=== PATIENT | female | born 1950 | race Caucasian/White ===

== ENCOUNTER 2018-01-07 12:00 | Inpatient (IN) | payer MEDICARE ==
--- NOTE | 2018-02-10 22:21 | HP ---
HISTORY AND PHYSICAL: DATE OF ADMISSION/SURGERY: 02/23/18 DATE OF OFFICE VISIT: 02/08/18 SURGEON: Carisa Ash MD * (DICTATED BY MARICRUZ ZURITA) PROCEDURE: Right total knee arthroplasty. CHIEF COMPLAINT: Right knee pain. HISTORY OF PRESENT ILLNESS: Ms. Darnell is a 67-year-old female with continued complaints of right knee pain. She has failed conservative treatment and elected to proceed with a right total knee arthroplasty. PAST MEDICAL HISTORY: Vitamin D deficiency, early Alzheimer's, anemia, and Raynaud's disease. PAST SURGICAL HISTORY: Orbital reconstruction, lumpectomy, throat biopsy, hysterectomy, trigger finger release, cataract excision. CURRENT MEDICATIONS: 1. Meloxicam 7.5 mg twice a day. 2. Famciclovir 250 mg daily. 3. Donepezil 5 mg q.h.s. ALLERGIES: To KEFLEX, SULFA, ERYTHROMYCIN, TENSILON, LATEX, and MYRBETRIQ. FAMILY HISTORY: Coronary artery disease, cancer, and diabetes. SOCIAL HISTORY: She is a 67-year-old female. She lives alone. She does not smoke or use drugs or alcohol. REVIEW OF SYSTEMS: A complete 14-point review of systems was reviewed with the patient. It was positive for occasional vertigo. She denies history of DVT, PE , hepatitis, HIV, or anesthesia problems. PHYSICAL EXAMINATION GENERAL: She is well developed, well nourished, in no acute distress. VITAL SIGNS: She stands 58 inches tall, weighs 156 pounds. Her blood pressure is 118/78 and her heart rate is 80. HEENT: Normocephalic, atraumatic. NECK: Supple. No palpable lymph nodes. PULMONARY: The lungs are clear to auscultation bilaterally. CARDIO: Regular rate and rhythm. Strong S1, S2. ABDOMEN: Soft, nontender, nondistended. NEUROLOGICAL: She is alert and oriented x3. MUSCULOSKELETAL: Right lower extremity: The skin is intact. She has no open wounds or abrasions. She walks with an antalgic-type gait favoring her right knee. She has some tenderness over the medial and lateral joint line. She has 2 + dorsalis pedis pulse, intact sensation and her lower extremity muscle group strengths are intact at 5/5. ASSESSMENT AND PLAN: Ms. Darnell is a 67-year-old female with end-stage osteoarthritis of the right knee. She has failed conservative treatment and elected to proceed with a right total knee arthroplasty. The surgery is scheduled for 02/23/[address] Ash discussed the risks and benefits of the surgery at today's visit and all of her questions were answered. She will follow up with Dr. Ash 2 weeks after the surgery. MARICRUZ ZURITA [id number]/[facility] #: [id number] MTDGeronimo
[2018-02-22] MEDS ORDERED: Buffered Lidocaine 0.9% SYRIN* 5 ML/SYR SYRINGE INTRADERM ONE (12:34)
[2018-02-23] MEDS ORDERED: Tranexamic Acid 1,000 MG in NS 0.9% 50 ML* (outpatient use) IV SCH ×2
[2018-02-23] MEDS ORDERED: Lactated Ringers 1000 ML Bag* 1,000 ML IV SCH ×2 (06:00→13:00)
[2018-02-23] MEDS ORDERED: Famotidine IV* 10 MG/ML 2 ML (20 mg) IV ONE (06:00)
[2018-02-23] MEDS ORDERED: Gabapentin CAP(*) 300 MG PO ONE (06:00)
[2018-02-23] MEDS ORDERED: ceFAZolin 2 GM PREMIX in ORs 2 GM/50 ML BAG IVPB ONE (07:22)
[2018-02-23] MEDS ORDERED: Famotidine IV* 10 MG/ML 2 ML (20 mg) ONE (07:22)
[2018-02-23] MEDS ORDERED: Gabapentin CAP(*) 300 MG ONE (07:22)
[2018-02-23] MEDS ORDERED: fentaNYL* 50 MCG/ML 2 ML VIAL (100 MCG VIAL) ONE ×2 (08:44→10:38)
[2018-02-23] MEDS ORDERED: Midazolam* 1 MG/ML 5 ML VIAL (5 MG) ONE (08:44)
[2018-02-23] MEDS ORDERED: ROPIVACAINE 5 MG/ML 30 ML BTL (0.5%) ONE (08:45)
[2018-02-23] MEDS ORDERED: KETAMINE HCL* 50 MG/ML 10 ML VIAL ONE (08:45)
[2018-02-23] MEDS ORDERED: Lidocaine 1%* 5 ML VIAL ONE (08:45)
[2018-02-23] MEDS ORDERED: Bupivacaine 0.5% PF 10 ML VIAL INJ ONE ×3 (09:52→12:11)
[2018-02-23] MEDS ORDERED: Dexmedetomidine* 200 MCG/2 ML 2 ML VIAL ONE (10:14)
[2018-02-23] MEDS ORDERED: Ketorolac INJ* 30 MG/ML 1 ML VIAL ONE (10:21)
[2018-02-23] MEDS ORDERED: Lidocaine 2% PF * 5 ML VIAL ONE (10:21)
[2018-02-23] MEDS ORDERED: Ondansetron INJ* 2 MG/ML VIAL ONE (10:21)
[2018-02-23] MEDS ORDERED: DiMENhydriNATE IV* 50 MG/ML VIAL ONE (10:21)
[2018-02-23] MEDS ORDERED: Dexamethasone IV* 4 MG/ML 1 ML (4 MG) ONE (10:21)
[2018-02-23] MEDS ORDERED: Propofol* 10 MG/ML 20 ML BTL ONE (10:21)
[2018-02-23] MEDS ORDERED: Acetaminophen IV 1GM/100ML * 1,000 MG/100 ML VIAL IVPB ONE (11:14)
[2018-02-23] MEDS ORDERED: DiMENhydriNATE IV* 50 MG/ML VIAL IV PUSH PRN (11:14)
[2018-02-23] MEDS ORDERED: Naloxone* 0.4 MG/ML 1 ML VIAL IV PRN (11:14)
[2018-02-23] MEDS ORDERED: Gabapentin CAP(*) 100 MG PO ONE (11:16)
[2018-02-23] MEDS ORDERED: HYDROmorphone INJ1* 1 MG/ML SYRINGE ONE ×3 (11:31→14:15)
[2018-02-23] MEDS ORDERED: Morphine VIAL* 4 MG/ML VIAL (1 ml vial) IV PRN (12:28)
[2018-02-23] MEDS ORDERED: oxyCODONE/Acetamin 5/325 MG* TAB PO PRN (12:28)
[2018-02-23] MEDS ORDERED: Magnesium Hydroxide LIQ* 30 ML UDC PO PRN (12:28)
[2018-02-23] MEDS ORDERED: Cyclobenzaprine TAB* 10 MG PO PRN (12:28)
[2018-02-23] MEDS ORDERED: Bisacodyl SUPP* 10 MG SUPP PR PRN (12:28)
[2018-02-23] MEDS ORDERED: Acetaminophen TAB* 325 MG PO PRN (12:28)
[2018-02-23] MEDS ORDERED: diPHENhydraMINE IV* 50 MG/ML 1 ml VIAL (BENADRYL) IV PRN (12:28)
[2018-02-23] MEDS ORDERED: Ondansetron INJ* 2 MG/ML VIAL IV PRN (12:28)
[2018-02-23] MEDS ORDERED: Gabapentin CAP(*) 100 MG ONE (13:22)
[2018-02-23] MEDS ORDERED: Acetaminophen IV 1GM/100ML * 100 ML ONE (13:22)
[2018-02-23] MEDS: HYDROmorphone INJ1* 1 MG/ML SYRINGE IV PRN ×3 (13:25→14:18)
[2018-02-23] MEDS ORDERED: oxyCODONE/Acetamin 5/325 MG* TAB ONE (14:16)
--- NOTE | 2018-02-23 15:17 | PN ---
Progress Note - Progress Note Date of Service: 02/23/18 Note: resting comfortably in bed with no complaints. Denies SOB/Chest pain. dressing c /d/i. 2+ DP pulse, intact sensation and able to dorsi flex/plantar flex
[2018-02-23] MEDS ORDERED: Clindamycin 600 MG IVPREMIX(* 600 MG/50 ML SDV IV SCH (15:30)
[2018-02-23] MEDS ORDERED: Warfarin TAB(*) 6 MG PO ONE (17:00)
[2018-02-23] MEDS: Clindamycin 600 MG IVPREMIX(* 600 MG/50 ML SDV IV SCH (18:09)
[2018-02-23] MEDS: oxyCODONE TAB* 5 MG TAB PO PRN (18:10)
[2018-02-23] MEDS: Nystatin TOP POWDER* 15 GM BTL TOPICAL SCH (19:58)
[2018-02-23] MEDS: Magnesium Hydroxide LIQ* 30 ML UDC PO SCH (19:58)
[2018-02-23] MEDS: Docusate CAP* 100 MG PO SCH (19:58)
[2018-02-23] MEDS: oxyCODONE/Acetamin 5/325 MG* TAB PO PRN (22:46)
[2018-02-24] MEDS: Clindamycin 600 MG IVPREMIX(* 600 MG/50 ML SDV IV SCH ×2 (02:05→10:01)
[2018-02-24] MEDS: oxyCODONE TAB* 5 MG TAB PO PRN ×4 (02:05→19:18)
[2018-02-24 06:21] LABS: Hematocrit 33 % (35-47); Hemoglobin 11.1 g/dl (12.0-16.0); Mean Platelet Volume 8.5 fL (7.4-10.4); Platelet Count 253 10^3/ul (150-450)
[2018-02-24 06:26] LABS: INR 1.17 (0.77-1.02)
[2018-02-24 06:43] LABS: EGFR Non-African American 106.1 (>60)
[2018-02-24] MEDS: Magnesium Hydroxide LIQ* 30 ML UDC PO SCH ×2 (08:33→22:16)
[2018-02-24] MEDS: Vitamin THERAPEUTIC TAB PO SCH (08:33)
[2018-02-24] MEDS: Docusate CAP* 100 MG PO SCH ×2 (08:33→22:16)
[2018-02-24] MEDS: Nystatin TOP POWDER* 15 GM BTL TOPICAL SCH ×2 (08:34→22:16)
[2018-02-24] MEDS: Enoxaparin(*) 40 MG/0.4 ML SYR SUBCUT SCH (08:35)
[2018-02-24] MEDS: oxyCODONE/Acetamin 5/325 MG* TAB PO PRN ×3 (08:41→22:16)
[2018-02-24] MEDS ORDERED: Pneumococcal *Vac Polyvalent 0.5 ML VIAL IM ONE (09:00)
--- NOTE | 2018-02-24 09:46 | OP ---
OPERATIVE NOTE: DATE OF OPERATION: 02/23/18 DATE OF : 52 ATTENDING SURGEON: Carisa Ash MD BRAN MIXER: MARICRUZ Gregg Mr. Carroll did help throughout the procedure with preparation of the leg, wound retraction, manipulat ion of the knee, and wound closure. ANESTHESIOLOGIST: Dr. Peña. ANESTHESIA: General. PRE-OP DIAGNOSIS: Severe end-stage degenerative osteoarthritis of the right knee joint. POST-OP DIAGNOSIS: Severe end-stage degenerative osteoarthritis of the right knee joint. OPERATIVE PROCEDURE: Right total knee arthroplasty. TOURNIQUET TIME: 46 minutes. COMPLICATIONS: None. ESTIMATED BLOOD LOSS: 250 cc. SPECIMEN: Bone and cartilage from the right knee joint sent to Pathology. HARDWARE USED: This is cemented [employer] total knee hardware. Two packages of Simplex bone cement. For the femur, a size 4 narrow right posterior stabilized Legion narrow Oxinium femoral comp onent. For the tibia, a size 3 right Vivian II tibial base plate. For the insert, an 11-mm posteri or stabilized articular insert, size 3-4. For the patella, a 26-mm 3-peg all poly patella with 7.5 t hickness. BRIEF HISTORY/INDICATION: Ms. Darnell is a 67-year-old female with years of increasingly severe righ t knee pain. Radiographs showed paic-nz-kuot arthritis. She failed conservative treatment with antii nflammatories, pain medication, intraarticular injections, and physical therapy. Due to continued pa in and decreased quality of life, she elected to undergo right total knee arthroplasty. Informed cons ent was obtained from the patient. She understood the risks of surgery included but were not limited to bleeding, infection, damage to nearby structures, continued pain, need for further surgery, intra operative fracture, nerve palsy, hardware failure or loosening, knee stiffness, loss of motion, strok e, heart attack, blood clot, and . She wished to proceed. INTRAOPERATIVE FINDINGS: Intraoperatively, the patient was noted to have severe end-stage arthritis with complete loss of cartilage in all 3 compartments. DESCRIPTION OF PROCEDURE: Ms. Darnell was identified in the preanesthesia unit. Her right lower extr emity was marked as the correct operative site. Informed consent was signed and placed in the chart. The patient was taken to the operating room and placed under general anesthesia. A Kilgore catheter was placed. Tourniquet was placed on the right thigh. Right lower extremity was prepped and draped in the usual sterile fashion. Preop time-out was made to correctly identify the patient, side, and s ite. Appropriate perioperative antibiotics were given within 1 hour of incision. Tourniquet was inflated and total tourniquet time for this procedure was 46 minutes. A midline incis ion was made with a 10-blade and carried down to the extensor mechanism. A new 10-blade was used to make a standard medial parapatellar arthrotomy. Patella was subluxed laterally. Electrocautery was used to subperiosteally elevate the soft tissue off the superomedial tibia to the mid sagittal plane. The patient's knee was flexed up. The anterior horn of the lateral meniscus and ACL were sharply r eleased. A drill was used to enter the distal femur. Intramedullary distal femoral cutting guide wa s pinned on the distal femur. Oscillating saw was used to make the distal femoral cut. Next, the ex ternal rotation guide was pinned on the distal femur. Distal femur was sized to a size 4. Size 4 mu lti-cutting jig was pinned on the distal femur. Oscillating saw was used to make the appropriate 4 c hamfer cuts. PCL was completely released. The tibia was subluxed anteriorly. Extramedullary tibial cutting guide was pinned on the proximal tibia. Oscillating saw was used to make the proximal tibial cut perpendi cular to the mechanical axis of the tibia. The bone was carefully removed. The knee was brought out into full extension. Spacer block had excellent fit with the knee in full extension. There was good medial and lateral ligamentous balancing. Flexion and extension gaps were well balanced. Any remain ing osteophytes were removed from along the medial tibial plateau. The knee was flexed up. Lamina s preader was placed both medially and laterally. Any remaining meniscus was carefully removed using e lectrocautery. Tibial tray and drop renetta were placed and once again confirmed satisfactory tibial cut. Next, the size 4 right narrow femoral trial was impacted onto the distal femur and had excellent fit. The box for the posterior stabilized implant was prepared using a reamer and box cut osteotome. Si ze 3 tibial tray trial with an 11-mm insert trial was placed and the knee was taken through a range o f motion. The knee had full extension to 130 degrees of flexion with satisfactory patellofemoral tra cking. The patella was everted. A 7 mm of patellar bone and cartilage was carefully removed using an oscillating saw. Patella was sized to a size 26. Three peg holes were drilled through the size 26 guide. A 26 patella with 7.5 thickness was placed and the knee was taken through range of motion. T here was satisfactory patellofemoral tracking. All trials were carefully removed. The tibia was subluxed anteriorly and sized to a size 3. Proxima l tibia was prepared using a size 3 keel punch. All bony cut surfaces were copiously irrigated with sterile saline and dried. Final implants were cemented into place starting with the tibia, followed by the femur and last the patella. An 11-mm insert trial was placed while the knee was brought out i nto full extension. Tourniquet was turned down at 46 minutes. Electrocautery was used to obtain met iculous hemostasis. The knee was copiously irrigated with sterile saline. Once the cement had fully cured, the insert trial was carefully removed. Any excess cement was removed from around the capsule and hardware. The final insert chosen was an 11-mm posterior stabilized articular insert size 3-4. This was locked into position on the tibial tray. The extensor mechanism was closed using interrupted #1 Vicryl. The rest of the incision was closed i n a layered fashion using 0 and 2-0 Vicryl. Skin was closed using running 3-0 nylon. Sterile Xerofo rm, 4x4's, and Webril were used to cover the incision. The Charly wrap and cold pack were placed over t his. The patient's anesthesia was reversed without difficulty. She was taken to the PACU in stable condition. [id number]/[facility] #: [id number]
--- NOTE | 2018-02-24 12:51 | PN ---
Progress Note - Progress Note Date of Service: 02/24/18 SOAP: Subjective: []Patient was seen and examined at bedside today. She is feeling well without severe knee pain. Denies CP, SOB, dizziness, nausea, confusion or leg numbness. No history of blood clot Objective: []General: Well appearing, NAD RLE: Right knee dressing CDI, no surrounding erythema, DF/PF intact, sensation intact distally, DP2+ Calves are supple and nontender without erythema, edema or palpable cords Assessment: [] POD 1 sp right total knee replacement 02/23/18 Dr Ash Plan: []WBAT PT/OT Lovenox bridge to coumadin, coumadin 8 mg today Hyponatremia. PO fluid restrict to 1200 ml today, stop lactated ringer maintenance fluid, soft BP so given 500 ml NS 100 ml/hr. Repeat sodium level tomorrow. Vital Signs Temp 98.1 F 02/24/18 11:15 Pulse 72 02/24/18 11:15 Resp 18 02/24/18 12:16 BP 107/53 02/24/18 11:15 Pulse Ox 99 02/24/18 11:15 Intake & Output 02/23/18 02/24/18 02/24/18 18:59 06:59 18:59 Intake Total 2700 2464 935 Output Total 125 3075 1050 Balance 2575 -611 -115 Weight 151 lb Intake: IV Fluids 1900 964 625 ABX - CLINDAMYCIN 54 105 LR 1900 910 520 Oral 800 1500 310 Output: Urine 1050 Kilgore 125 3075 Other: # Bowel Movements 0 Laboratory Last Values Hgb 11.1 g/dl (12.0-16.0) L 02/24/18 05:56 Hct 33 % (35-47) L 02/24/18 05:56 Plt Count 253 10^3/ul (150-450) 02/24/18 05:56 MPV 8.5 fL (7.4-10.4) 02/24/18 05:56 INR (Anticoag Therapy) 1.17 (0.77-1.02) H 02/24/18 05:56 Sodium 126 mmol/L (135-145) L 02/24/18 05:56 Potassium 3.9 mmol/L (3.5-5.0) 02/24/18 05:56 Chloride 93 mmol/L (101-111) L 02/24/18 05:56 Carbon Dioxide 25 mmol/L (22-32) 02/24/18 05:56 Anion Gap 8 mmol/L (2-11) 02/24/18 05:56 BUN 8 mg/dL (6-24) 02/24/18 05:56 Creatinine 0.57 mg/dL (0.51-0.95) 02/24/18 05:56 Est GFR ( Amer) 128.4 (>60) 02/24/18 05:56 Est GFR (Non-Af Amer) 106.1 (>60) 02/24/18 05:56 BUN/Creatinine Ratio 14.0 (8-20) 02/24/18 05:56 Glucose 115 mg/dL (70-100) H 02/24/18 05:56 Calcium 9.0 mg/dL (8.6-10.3) 02/24/18 05:56 Blood Type A Positive 02/23/18 07:50 Antibody Screen Negative 02/23/18 07:50
[2018-02-24] MEDS ORDERED: NS 0.9% 500 ML* 500 ML IV ONE (12:53)
[2018-02-24] MEDS ORDERED: Warfarin TAB(*) 4 MG PO ONE (17:00)
[2018-02-25] MEDS: oxyCODONE/Acetamin 5/325 MG* TAB PO PRN ×2 (04:38→09:03)
[2018-02-25 05:12] LABS: Hematocrit 32 % (35-47); Hemoglobin 10.7 g/dl (12.0-16.0); Mean Platelet Volume 8.4 fL (7.4-10.4); Platelet Count 194 10^3/ul (150-450)
[2018-02-25 05:18] LABS: INR 3.39 (0.77-1.02)
[2018-02-25] MEDS: oxyCODONE TAB* 5 MG TAB PO PRN ×2 (06:28→12:38)
--- NOTE | 2018-02-25 07:41 | PN ---
Progress Note - Progress Note Date of Service: 02/25/18 SOAP: Subjective: Pt. is alert, nad. Pain is controlled. Objective: Vital Signs: Temp Pulse Resp BP Pulse Ox 97.7 F 75 16 111/52 98 02/25/18 03:50 02/25/18 03:50 02/25/18 06:36 02/25/18 03:50 02/25/18 03:50 Laboratory Results - last 24 hr 02/24/18 02/25/18 02/25/18 14:32 04:57 05:01 Hgb 10.7 L Hct 32 L Plt Count 194 MPV 8.4 INR (Anticoag Therapy) 3.39 H Sodium 136 D 02/25/18 05:01 Hgb Hct Plt Count MPV INR (Anticoag Therapy) Sodium 136 RLE - dressing c/d/i. distally nvi. Assessment: 67 yo pod 2 s/p RTKA Plan: wbat rle pt/ot plan d/c to home today with vns.
[2018-02-25] MEDS: Nystatin TOP POWDER* 15 GM BTL TOPICAL SCH (09:01)
[2018-02-25] MEDS: Enoxaparin(*) 40 MG/0.4 ML SYR SUBCUT SCH (09:02)
[2018-02-25] MEDS: Docusate CAP* 100 MG PO SCH (09:02)
[2018-02-25] MEDS: Vitamin THERAPEUTIC TAB PO SCH (09:02)
[2018-02-25] MEDS: Magnesium Hydroxide LIQ* 30 ML UDC PO SCH (09:03)
[2018-02-25 13:31] VITALS: BP 149/71
== END 2018-02-25 13:00 | disposition home health service (06) | DRG 470 ==
LOC: AA 02-23 06:50 → SSU 02-23 12:28
PROVIDERS: ADMIT Orthopaedic Surgery Adult Reconstructive Orthopaedic Surgery; ATTEND Orthopaedic Surgery Adult Reconstructive Orthopaedic Surgery
PROC: 0SRC069 Replacement of Right Knee Joint with Oxidized Zirconium on Polyethylene Synthetic Substitute, Cemented, Open Approach (ICD-10-PCS; principal; 2018-02-23 09:00)
DX: M17.11 Unilateral primary osteoarthritis, right knee (principal); E87.1 Hypo-osmolality and hyponatremia; I73.00 Raynaud's syndrome without gangrene; F41.9 Anxiety disorder, unspecified; Z96.1 Presence of intraocular lens; M25.461 Effusion, right knee; E04.9 Nontoxic goiter, unspecified; H90.5 Unspecified sensorineural hearing loss; M47.812 Spondylosis without myelopathy or radiculopathy, cervical region; I83.90 Asymptomatic varicose veins of unspecified lower extremity; M25.761 Osteophyte, right knee; G30.9 Alzheimer's disease, unspecified; Z90.710 Acquired absence of both cervix and uterus; Z88.2 Allergy status to sulfonamides; Z88.8 Allergy status to other drugs, medicaments and biological substances; Z88.1 Allergy status to other antibiotic agents; Z91.040 Latex allergy status; Z82.49 Family history of ischemic heart disease and other diseases of the circulatory system; Z83.3 Family history of diabetes mellitus; Z80.3 Family history of malignant neoplasm of breast; Z98.41 Cataract extraction status, right eye; Z98.42 Cataract extraction status, left eye; Z80.42 Family history of malignant neoplasm of prostate; Z80.8 Family history of malignant neoplasm of other organs or systems; Z82.0 Family history of epilepsy and other diseases of the nervous system; Z83.49 Family history of other endocrine, nutritional and metabolic diseases; Z82.61 Family history of arthritis; Z23 Encounter for immunization
CPT/HCPCS: 36415; 80048; 84300; 85014; 85018; 85049; 85610; 86850; 86900; 86901; 88305; 88311; 90732; A9270-GY; C1776; G8987-GO-CI; G8988-GO-CI; J0690; J1100; J1170; J1240; J1650; J1885; J2250; J2405; J2704; J2795; J3010